=== PATIENT | male | born 1990 | race Two or more races ===

== ENCOUNTER 2023-12-09 21:06 | Emergency (ER) | payer MEDICAID, OTHER ==
[~2023-12-09] VITALS: Ht 170.2 cm; Wt 100.0 kg
[2023-12-09] MEDS: ACETAMINOPHEN 325 MG TAB PO ONE (21:47)
[2023-12-09 22:34] LABS: COVID19 ANTIGEN SOFIA FIA NEGATIVE (NEGATIVE)
[2023-12-09 22:35] LABS: Rapid Influenza A Negative (Negative); Rapid Influenza B Negative (Negative)
[2023-12-09 23:06] VITALS: BP 131/106; TEMP 100
[2023-12-09 23:08] VITALS: PULSE 122; RESP 18; O2SAT 96
[2023-12-10] MEDS: ONDANSETRON ODT 4 MG TAB PO ONE (01:38)
[2023-12-10] MEDS: KETOROLAC TROMETH 60MG/2ML VIAL IM ONE (01:39)
== END 2023-12-10 01:45 | disposition home or self-care (01) ==
LOC: ER 21:06
DX: B34.9 Viral infection, unspecified (principal); Z20.822 Contact with and (suspected) exposure to COVID-19
CPT/HCPCS: 36415; 87426; 87804; 96372; 99283; J1885; J7030; Q0162